=== PATIENT | female | born 1960 | race Caucasian/White ===

== ENCOUNTER 2018-12-21 13:47 | Emergency (ER) | payer OTHER ==
[~2018-12-21] VITALS: Ht 154.9 cm; Wt 64.4 kg
[2018-12-21 13:52] VITALS: BP 143/88
--- NOTE | 2018-12-21 13:56 | NUR ---
TO BED 9 WITH STEADY GAIT.
--- NOTE | 2018-12-21 14:03 | NUR ---
58 year old female brought in by self c/o left eye pain from this morning. Patient stated pain level 5/10. Patient also stated left eye feels irritated is watery and tearing without any visual changes. Watery drainage coming from left nostril also. MedHx: bipolar and hypothyroidism. Patient positioned for comfort, HOB elevated, bedrails up x1. Waiting for MD to evaluate patient.
--- NOTE | 2018-12-21 14:08 | NUR ---
Patient being evaluated by SHERWIN CESPEDES at bedside.
[2018-12-21] MEDS ORDERED: FLUORESCEIN OPTH STRIP 0.6 MG OP ONE (14:15)
[2018-12-21] MEDS ORDERED: TETRACAINE HCL/PF 0.5% OPTH 4 ML BTL OP ONE (14:20)
[2018-12-21] MEDS ORDERED: TETRACAINE HCL/PF 0.5% OPTH 4 ML BTL ONE (14:27)
[2018-12-21 15:00] VITALS: BP 110/78
--- NOTE | 2018-12-21 15:00 | NUR ---
Patient discharged with v/s stable. Written and verbal after care instructions given and explained. Patient alert, oriented and verbalized understanding of instructions. Ambulatory with steady gait. All questions addressed prior to discharge. ID band removed. Patient advised to follow up with PMD. Rx of Gentamicin given. Patient educated on indication of medication including possible reaction and side effects. Opportunity to ask questions provided and answered.
== END 2018-12-21 15:00 | disposition home or self-care (01) ==
LOC: MED 13:47
DX: S05.02XA Injury of conjunctiva and corneal abrasion without foreign body, left eye, initial encounter (principal); F31.9 Bipolar disorder, unspecified; E03.9 Hypothyroidism, unspecified; X58.XXXA Exposure to other specified factors, initial encounter; Y93.89 Activity, other specified; Y92.89 Other specified places as the place of occurrence of the external cause; Y99.8 Other external cause status
CPT/HCPCS: 81002; 81025; 99283

== ENCOUNTER 2019-03-19 21:16 | Emergency (ER) | payer OTHER ==
[~2019-03-19] VITALS: Ht 154.9 cm; Wt 65.8 kg
[2019-03-19 21:30] VITALS: BP 134/84
--- NOTE | 2019-03-19 21:30 | NUR ---
TO BED # 08 AMBULATORY
--- NOTE | 2019-03-19 21:37 | NUR ---
58/F PRESENTS TO ED WITH FAMILY/FRIEND, C/O POSSIBLE TICK/BUG BITE, NOTICED TONIGHT. 2MM CIRCULAR SCAB WITH SURROUNDING MILD ERYTHEMA, ON LLQ. PT DID NOT SEE THE TICK, NO TICK NOTED, NO BULLSEYE RASH. PT DENIES FEVER, N/V, FATIGUE, PAIN OR ITCHING. PT AWAKE AND ALERT, SKIN NORMAL WARM AND DRY, RR EVEN AND UNLABORED. HX BIPOLAR, HLD, HYPOTHYROID RX SYNTHROID, ABILIFY, LIPITOR, LAMICTAL
--- NOTE | 2019-03-19 23:26 | NUR ---
Dr. River evaluating patient at bedside.
--- NOTE | 2019-03-19 23:32 | NUR ---
DR BOGGS AT BEDSIDE. REMOVED SCAB FROM PT'S LLQ WOUND. PT TOLERATED WELL. NO TICK NOTED.
[2019-03-19 23:49] VITALS: BP 130/81
== END 2019-03-19 23:49 | disposition home or self-care (01) ==
LOC: MED 21:16
DX: S30.861A Insect bite (nonvenomous) of abdominal wall, initial encounter (principal); R21 Rash and other nonspecific skin eruption; E78.5 Hyperlipidemia, unspecified; F31.9 Bipolar disorder, unspecified; E03.9 Hypothyroidism, unspecified; W57.XXXA Bitten or stung by nonvenomous insect and other nonvenomous arthropods, initial encounter; Y93.89 Activity, other specified; Y92.89 Other specified places as the place of occurrence of the external cause; Y99.8 Other external cause status
CPT/HCPCS: 99283

== ENCOUNTER 2021-03-22 12:09 | Emergency (ER) | payer OTHER ==
[~2021-03-22] VITALS: Ht 154.9 cm; Wt 68.0 kg
[2021-03-22 12:14] VITALS: BP 124/75
--- NOTE | 2021-03-22 12:19 | NUR ---
PT SENT TO LOBBY.
--- NOTE | 2021-03-22 13:05 | NUR ---
PT TAKEN TO CT VIA W/C
[2021-03-22 14:17] LABS: APPEARANCE,URINE CLEAR (CLEAR); BILIRUBIN,URINE 1+ (NEGATIVE); BLOOD, URINE TRACE-I (NEGATIVE); COLOR,URINE YELLOW (YELLOW); LEUKOCYTE ESTERASE ,URINE NEGATIVE (NEGATIVE); NITRITE, URINE NEGATIVE (NEGATIVE); PH,URINE 5.5 (5.0-9.0); UGLUCOSE NEGATIVE (NEGATIVE)
[2021-03-22] MEDS ORDERED: ACET-10509 PO (14:25)
--- NOTE | 2021-03-22 14:35 | NUR ---
NO NURSING INTERVENTIONS PERFORMED
[2021-03-22 14:45] VITALS: BP 132/83
== END 2021-03-22 14:48 | disposition home or self-care (01) ==
LOC: MED 12:09
DX: R51.9 Headache, unspecified (principal)
CPT/HCPCS: 70450; 81001; 87086; 99284